=== PATIENT | male | born 1950 | race Caucasian/White ===

== ENCOUNTER 2020-09-25 09:43 | Emergency (ER) | payer MEDICARE, OTHER, SELFPAY ==
--- NOTE | 2020-09-25 09:43 | ECG_ITS ---
APPROVED REPORT Exam: Resting ECG HR:69 bpm ECG Measurements Heart Rate 69 AXES HI 134 P 56 QRSd 76 QRS 55 QT 390 T 39 QTc 417 Conclusion Normal sinus rhythm Delayed R wave transition. Abnormal ECG Electronically signed by : Jimbo Gooden MD 09/28/2020 11:41:48
[2020-09-25 09:48] VITALS: BP 140/85; PULSE 68; RESP 18; TEMP 36.6; O2SAT 96; BMI 25.1
--- NOTE | 2020-09-25 09:51 | XR_ITS ---
PROCEDURE: XR CHEST PORTABLE CLINICAL HISTORY: cp Chest pain COMPARISON: No exams were available for comparison FINDINGS: The cardiomediastinal silhouette and pulmonary vascularity are within normal limits. There are atelectatic changes in the lung bases. The remaining lungs are clear. No acute bony abnormalities. IMPRESSION: Bibasilar atelectasis Dictated by: Pietro De La Rosa MD 09/25/2020 10:34 Pietro De La Rosa MD in [place] 09/25/2020 10:34
--- NOTE | 2020-09-25 09:52 | HMH.EDGENADL ---
ED Disposition Clinical Impression: Chest pain Qualifiers: Chest pain type: unspecified Qualified Code(s): R07.9 - Chest pain, unspecified Disposition: Home, Self-Care Condition on Discharge: Good Referrals: Provider,Referral, [Referring] - 3 days Time of Disposition: 10:45 - Critical Care Critical Care Time: No Attestation: On , the high probability of a clinically significant, sudden or life threatening deterioration of the following system(s) required my full and direct attention, intervention and personal management. The time I documented below is in addition to time spent performing reported procedures but includes the following listed in this critical care notation. Medical Decision Making - Medical Records Medical records reviewed: Yes: I reviewed the patient's medical records. - Flaco Inquiry Pt receiving controlled substance: No Vital Signs: 09/25/20 09:48 09/25/20 10:10 Temperature 98 F Temperature Source Oral Pulse Rate 72 Pulse Rate [Right] 68 Respiratory Rate 18 12 Blood Pressure 135/90 Blood Pressure [Right Arm] 140/85 Blood Pressure Mean [Right Arm] 103 02 Sat by Pulse Oximetry 96 96 Oxygen Delivery Method Room Air Room Air - Lab Data Lab Results 09/25/20 09:59: WBC 5.1, RBC 4.65, Hgb 14.8, Hct 42.4, MCV 91.1, MCH 31.9 H, MCHC 35.0, RDW 13.5, Plt Count 171, MPV 8.0, Neut % (Auto) 56.5, Lymph % (Auto) 34.8, Hamlin % (Auto) 6.7, Eos % (Auto) 1.3, Baso % (Auto) 0.7, Neut # (Auto) 2.9, Lymph # (Auto) 1.8, Hamlin # (Auto) 0.3, Eos # (Auto) 0.1, Baso # (Auto) 0.0 09/25/20 09:59: Sodium 139, Potassium 3.7, Chloride 101, Carbon Dioxide 28, Anion Gap 13.7, BUN 19, Creatinine 1.00, Estimated Creat Clear 77, Estimated GFR 74, Est GFR ( Amer) 90, Glucose 103 H, Calcium 9.3, Troponin I < 0.01 Result diagrams: 09/25/20 09:59 09/25/20 09:59 Orders (Tests/Meds): ED MEDICATIONS Generic Name Dose Route Start Last Admin Trade Name Evelyne PRN Reason Stop Dose Admin Nitroglycerin 0.4 mg 09/25/20 09:50 Nitroglycerin 0.4mg Sl Tablet SL 09/26/20 09:51 [id number] PRN Chest Pain Discontinued Medications Generic Name Dose Route Start Last Admin Trade Name Evelyne PRN Reason Stop Dose Admin Aspirin 324 mg 09/25/20 09:50 09/25/20 10:00 Aspirin 81mg Chewable Tablet PO 09/25/20 09:51 324 mg ONCE ONE Administration ORDERS Category Date Time Status Troponin I Q3H Lab 09/25/20 13:00 Ordered Troponin I Q3H Lab 09/25/20 16:00 Ordered - ECG Data Tracing #1 I reviewed this ECG and interpreted as documented below: Normal sinus rhythm, 69 bpm, no ST elevation or depression, normal intervals, no ectopy. Exam limited somewhat by artifact in leads I, lead II, lead aVR and aVL. ECG initial impression date: 09/25/20 ECG initial impression time: 09:45 - LADAN Score for Non-Stemi Age of Patient: 60-69 years old Heart Rate: 50-69 bpm Systolic Blood Pressure: 140-159 mmHg Serum Creatinine: 0.80-1.19 mg/dl CHF Killip Class: I-No CHF Other Risk Factors: None Non-Stemi Risk Score: 92 Medical Decision Narrative: 70yo M evaluated for chest pain. Patient no acute distress on initial evaluation. Differential diagnosis includes was not limited to: ACS/IN, PE, pneumonia, aortic injury, anxiety, GERD, constipation, gallbladder disease, pneumothorax. EKG is unremarkable as reviewed above. Chest x-ray is pending. Routine cardiac laboratory studies have been collected. Patient treated with 324 aspirin. Patient's work-up is benign. His cardiac risk is low per the Ladna score. Patient's heart score is 2. He remains asymptomatic at this time. He has a PCP at [facility]. Patient is appropriate and stable for discharge home for further outpatient work-up. General Adult HPI - General Stated complaint: chest pains Time Seen by Provider: 09/25/20 09:53 Mode of Arrival: Ambulatory - History of Present Illness HPI narrative: 70yo M reports the emergenc
[2020-09-25 10:10] VITALS: BP 135/90; PULSE 72; RESP 12; O2SAT 96
[2020-09-25 10:10] LABS: Basophils % 0.7 % (0.1-2.0); Eosinophils # 0.1 K/mm3 (0.0-0.4); Eosinophils % 1.3 % (0.1-12.0); Hematocrit 42.4 % (42.0-52.0); Hemoglobin 14.8 g/dL (14.1-18.0); Lymphocytes # 1.8 K/mm3 (0.7-4.5); Lymphocytes % 34.8 % (10-50); Mean Corpuscular Hemoglobin 31.9 pg (27.0-31.2); Mean Corpuscular Volume 91.1 fl (80-94); Monocytes # 0.3 K/mm3 (0.1-1.0); Monocytes % 6.7 % (1.7-9.3); Neutrophils # 2.9 K/mm3 (1.8-7.8); Neutrophils % 56.5 % (37.0-80.0); Platelet Count 171 K/mm3 (142-424); Red Blood Count 4.65 M/mm3 (4.60-6.20); Red Cell Distribution Width 13.5 % (11.5-17.5); White Blood Count 5.1 K/mm3 (4.8-10.8)
[2020-09-25 10:22] LABS: Chloride 101 mmol/L (98-107); Sodium 139 mmol/L (136-145)
[2020-09-25 10:23] LABS: Potassium 3.7 mmoL/L (3.5-5.1)
[2020-09-25 10:25] LABS: Blood Urea Nitrogen 19 mg/dl (9-20); Creatinine Clearance Estimated 77 mL/min (50-200); Estimated Glomerular Filt Rate 74 ml/min (>60); GFR (African American) 90 ML/MIN (>60)
[2020-09-25 10:26] LABS: Anion Gap 13.7 mEq/L (5-15); Calcium 9.3 mg/dl (8.4-10.2); Carbon Dioxide 28 mmol/L (22.0-30.0); Glucose 103 mg/dl (74-100)
[2020-09-25 10:38] LABS: Troponin I < 0.01 ng/ml (0.00-0.034)
[2020-09-25 10:56] VITALS: BP 133/84; PULSE 70; RESP 16; TEMP 36.5; O2SAT 94
== END 2020-09-25 10:57 | disposition home or self-care (01) ==
PROVIDERS: Emergency Provider Family Medicine; PCP Internal Medicine
DX: R07.9 Chest pain, unspecified (principal)
CPT/HCPCS: 71045; 80048; 84484; 85025; 93005; 99284

== ENCOUNTER 2025-01-16 09:47 | Emergency (ER) | payer MEDICARE, SELFPAY ==
--- OUTSIDE RECORDS SUMMARY | 2024-12-12 14:00 | XMS_ITS | Encounter Summary ---
Author Name Yana Lazaro Address [address] [place] [address] Organization [facility] Address [address] [place] [address] Medications * escitalopram oxalate 20 mg tablet: * varenicline tartrate 0.5 mg tablet: * rosuvastatin calcium 20 mg tablet: * losartan potassium 50 mg tablet: * gabapentin 600 mg tablet: * levothyroxine sodium 137 mcg tablet: Allergies Assessment and Plan ASSESSMENT SUMMARY NIDA MELGAR is a 74 year old man seen today by [facility] for a [facility] Visit. DEVOTED: (Actions completed today and next steps): - enrolled in medication on time today- Educatedon importance of smoking cessation and taking statin daily due to coronary artery disease- Recommend flu vaccine- Follow-up expected: annual D2Me PATIENT'S NEXT STEPS: - continue to f/u with pcp and specialists as scheduled- to get flu vaccine- continue to enjoy hobbies: spending time with dog- goal over next 6-12 months is to increase physical activity weekly and consider grief counseling Patient Currently Located in their home state of [place], YES DIAGNOSIS SUMMARY* J43.9- Emphysema, unspecified * F17.210- Nicotine dependence, cigarettes, uncomplicated * 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 * E78.5- Hyperlipidemia, unspecified * E03.9- Hypothyroidism, unspecified VISIT PURPOSE, PATIENT'S GOALS, & AGENDA SETTING Annual Wellness Visit with PCP completed this year?: AWV already completed Today's Member Goals: patient doesn't have any current concerns, is feeling as well as can be expected MEDICATION RECONCILIATION Did you review the patient's prescription and non-prescription drugs, vitamins, herbal remedies, and other supplements, AND is the accompanying medication list documented in the medical record?: Yes MEDICATION ADHERENCE Home Delivery Order Consent: No Medication Class(es) <em>select all that apply</em> Is member interested in enrolling in Medication On Time Program today?: MEMBER INTERESTED Is member receiving VA medical benefits?: NO MEDICATION ON TIME CONSENT: Yes GENERAL ASSESSMENT* Feet: 5 Inches: 8 WEIGHT (pounds): 155 <hr>BODY MEASUREMENTS:* <em>Patient Height in centimeters</em>: 172.72* <em>Patient Weight in kilograms</em>: 70.31 * <em>Patient Body Mass Index</em>: 23.57 Supplemental oxygen status: Room Air Supplemental Oxygen Needs: Does not need supplemental oxygen In general, would you say your quality of life is: Good Do you exercise regularly?: No Physical activity level during a typical week: patient has not current regimen General Assessment Notes:patient does not have a bp monitor SUBSTANCE USE - Smoking History History of cigarette use: Yes Cigarette smoking status: Current Smoker Packs / day: 0.5 Duration (years): 30 DISCUSSED: Counseling on smoking cessation, pharmacotherapy, and spirometry testing was provided DISCUSSED: For men 65 - 75, counseled the patient on the importance of AAA screening due to elevated risk from smoking history Dx:F17.210- Nicotine dependence, cigarettes, uncomplicated Notes for F17.210: - Pt currentsmoker- PPD for 0.5 year for 30 years- Currently with diagnosis of emphysema- Recommend surveillance CT chest, CXR as indicated- Follow up with PCP SUBSTANCE USE - Alcohol Use The patient has never been a drinker: Yes SCREENING - Depression Previously diagnosed with major depressive disorder?: Yes Is the patient currently on antidepressant medication?: Yes PHQ-2 Assessment Little interest or pleasure in doing things?: Several days (+1) Feeling down, depressed, or hopeless?: Several days (+1) PHQ2 Score: 2 PHQ-9 Assessment Trouble falling or staying asleep, or sleeping too much?: Not at all (0) Feeling tired or having little energy?: Nearly every day (+3) Poor appetite or overeating?: Several days (+1) Feeling bad about yourself, or that you are a failure or have let yourself or your family down?: Not at all (0) Trouble concentrating on things, such as reading the newspaper or watching television?: Not at all (0) Moving or speaking so slowly that other people could have noticed? Or so fidgety or restless that you have been moving a lot more than usual?: Not at all (0) Thoughts that you would be better off , or thoughts of hurting yourself in some way?: Not at all (0) PHQ9 Score: 6 Had > 1 episode of major depression?: No Previously recorded diagnosis of bipolar disorder, schizoaffective disorder, or schizophrenia?: No / Unknown SCREENING - Fall Risk Have you fallen in the past year?: No Do you have problems getting around?: No SCREENING - DME & Home Health Does the patient use any durable medical equpiment?: No Does the patient use home health, physical therapy or long term services?: No New orders, referrals, or any other assistance with DME or home health needed at this time?: No GENERAL REVIEW OF SYSTEMS Review of systems negative unless otherwise indicated above: Yes PULMONARY - Chronic Lung Disease Previously diagnosed with Emphysema: Yes [COPD] FEV1/FVC ratio < 0.7 + signs/symptoms of COPD?: No Signs or symptoms of an acute exacerbation of COPD?: No Dx:J43.9- Emphysema, unspecified Notes for J43.9: - Pt with emphysema does not have current symptoms of SOB, FLORES, cough, wheezing, sputum production- Diagnostic tests: CT CHEST LOW DOSE SCREENING study was obtained by Red Fajardo MD on 05/15/2023. Excerpt from the report: 'There is mild emphysematous change'- Patient is not using an inhaler and has never had to use one- Educated that any worsening cough, SOB, and/or wheezing would require urgent follow-up- Follow up with PCP as scheduled * DISCUSSED: Counseling on benefits of abstaining from smoking. 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 Notes for I25.10: - Patient has atherosclerotic heart disease of nulato coronary artery without angina- Patient informed of imaging findings today, previously aware of finding.- Educated pt on atherosclerosis and recommendation of cardiovascular exercise in preventing progression of atherosclerosis- Patient is taking rosuvastatin for treatment and is compliant- Followed by PCP * ACTION: Confirm patient is on statin therapy, with goal LDL of 100 mg/dL, or has a contraindication RENAL - Chronic Kidney Disease Does patient carry a diagnosis of chronic kidney disease?: No Two basic metabolic panels by > 3 months showing an eGFR < 90?: No SKIN - Ulcers Does patient CURRENTLY have a skin ulcer?: No COMMON DIAGNOSES The patient has a diagnosis of hyperlipidemia: Yes The patient has a previously recorded diagnosis of hypothyroidism: Yes Statin status: Already on a statin regimen Dx:E78.5- Hyperlipidemia, unspecified Notes for E78.5: - Pt with hyperlipidemia- Taking rosuvastatin as prescribed- Most recent lipid panel and date: Chol:182 HDL:40 LDL:102 Tri on 09/08/24- Educated on importance of low saturated fat diet and physical activity- Followed by PCP * DISCUSSED: Educated patient on etiology and natural history of hyperlipidemia * DISCUSSED: Educated patient on lifestyle modifications such as diet and exercise to improve lipid levels * DISCUSSED: Educated patient on importance of medication adherence to improve lipid levels * ACTION: Confirmed that patient's lipid levels are being monitored by PCP The etiology of the patient's hypothyroidism is: Other Dx:E03.9- Hypothyroidism, unspecified Notes for E03.9: - Patient has hypothyroidism- Currently taking [levothyroxine] and compliant with current regimen- Educated on taking first thing in the morning with a full glass of water on an empty stomach without other medications- Managed by PCP, will follow up as scheduled ADDITIONAL MEDICAL HISTORY Condition: Cirrhosis of Liver Condition Stability: Stable Medication Adherence: Not prescribed medication Additional Notes-: 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 Stable currently without any symptoms Condition: Depression Condition Stability: Other Medication Adherence: Taking medication as prescribed Medication Regimen Recommendations: No changes recommended Additional Notes-: lexapro dose recently increased, patient advised to stay as diligent as possiblein eating healthy and getting nutrients daily. Encouraged going on walks and does have access to grief counseling Condition: Hypertension Condition Stability: Stable Medication Adherence: Taking medication as prescribed Medication Regimen Recommendations: No changes recommended Additional Notes-: most recent blood pressure stable 136/78, followed closely by pcp 2024 APPOINTMENT CPT CODE Please indicate how this visit was conducted: Video Please select the video platform used during the visit: [employer] Video Room Please record the total amount of time you spent on this patient visit- Total time includes time spent on preparation, speaking with the patient, documentation, and post-visit coordination of care - This is limited to time spent ON THE DATE OF SERVICE (e.g. does not include time spent on days prior to or after the date of service) 45 - 59 minutes
[2025-01-16] VITALS (7 sets, daily range): BP systolic 143–165; BP diastolic 73–96; PULSE 61–81; RESP 18; TEMP 36.6; O2SAT 95–96; BMI 24.3
--- OUTSIDE RECORDS SUMMARY | 2025-01-16 10:02 | XMS_ITS | Clinical Summary ---
Author Organization [facility] Address [address] [place] [address] Phone Care Team Providers Care Roper Operator Name Role Phone Unavailable Unavailable Conditions or Problems No information available. Medications No information available. Medications Administered No information available. Allergies, Adverse Reactions, Alerts No information available. Results No information available. Plan of Care No information available. Procedures No information available. Vital Signs No information available. Immunizations No information available. Advance Directives No information available.
--- NOTE | 2025-01-16 10:11 | XR_ITS ---
FINAL REPORT CLINICAL HISTORY: FOOSH/elbow injury FINDINGS: AP and lateral views of the left forearm are obtained. There is no prior exam for comparison. There is no acute osseous abnormality of the left forearm. The wrist and elbow are intact. The soft tissues appear normal. IMPRESSION: No acute osseous abnormality of the left forearm. Reviewed, Interpreted and Dictated by Marylin Duran MD Transcribed by Tracie Cunningham Authenticated and [facility]
--- NOTE | 2025-01-16 10:13 | XR_ITS ---
FINAL REPORT CLINICAL HISTORY: FOOSH injury/elbow injury FINDINGS: Four views of the elbow were obtained. There is no acute fracture or dislocation. There is mild multijoint degenerative disease. There is not soft tissue abnormality. IMPRESSION: No acute fracture Reviewed, Interpreted and Dictated by Marylin Duran MD Transcribed by Tracie Cunningham Authenticated and [facility]
--- NOTE | 2025-01-16 10:13 | XR_ITS ---
FINAL REPORT CLINICAL HISTORY: FOOSH/left arm injury FINDINGS: AP, oblique, and lateral views of the left wrist were obtained. There is no prior exam for comparison. There is no acute fracture or dislocation. There is mild multijoint degenerative disease. The soft tissues are normal. IMPRESSION: No acute osseous abnormality of the left wrist. Reviewed, Interpreted and Dictated by Marylin Duran MD Transcribed by Tracie Cunningham Authenticated and [facility]
--- NOTE | 2025-01-16 10:14 | ED_ITS ---
<Statement entered by Isabel Rodríguez MD - 01/16/25 13:43> I was consulted by the SARAH, and we discussed the complexity of the problems being addressed. I approved the treatment and management plan for this patient's care in the emergency department, thus performing a substantive portion of the medical decision making. Isabel Rodríguez MD, RAHEEM, FACEP Discharge Plan Disposition Patient Disposition: Home, Self-Care Condition: Good Prescriptions Prescriptions: New hydrocodone-acetaminophen 5-325 mg tablet 1 tab PO Q6H PRN (Reason: pain) 3 Days Qty: 12 0RF Referrals Follow up/Referrals: Provider,Referral, [Referring, Medical] - See instructions Satya Clifton DO [Staff Physician, Orthopedics] - See instructions Activity Restrictions/Add. Instructions Additional Instructions/Restrictions: Please return to the emergency department any worsening signs or symptoms. Please take your pain medicines as prescribed. Please follow-up with the orthopedic doctor in the upcoming days/weeks. Please keep your arm in the sling and splint until orthopedic follow-up. Clinical Impressions Clinical Impression: Left ulnar fracture Instructions Patient Instructions: DI for Elbow Fracture Print Language Print Language: Khmer Discharge ED Provider: Isabel Rodríguez General Adult HPI General Chief complaint: Fall Stated complaint: AO-01/15/25, Pain L elbow and wrist Time Seen by Provider: 01/16/25 10:05 Mode of Arrival: Ambulatory Source of Information: Patient Description of Symptoms (Recalled from ER Triage Doc. by RN): pt fell @ 2100 last night. complains of left arm pain from the elbow down. denies being on a blood thinner or hitting his head/LOC from the fall. History of Present Illness HPI narrative: 74-year-old male presents the emergency department with a left elbow/left arm FOOSH injury that occurred last night. Patient states that last night he was walking on his property when he slipped down a embankment , patient denies any presyncopal or syncopal event, denies striking head denies any LOC, denies any other upper or lower extremity injury except for the left arm, patient does move extremities to command but does have some pain limited range of motion, denies any neck pain or back pain, denies any radicular type symptomatology, patient denies any fever chills chest pain shortness of breath no numbness or tingling no other acute symptomatology, patient is a current everyday smoker denies any alcohol or drug use, other past medical history is consistent with hypothyroidism, neuropathy, hyperlipidemia. Initial triage vitals are unremarkable. Of note, patient not yet taken any medication for this tressa n/injury. Please note that above description of symptoms, in this electronic medical record under categorization of recalled from ER triage doctor by RN are reflective of an initial nursing assessment, however, is not reflective of my full history and physical exam that was personally taken and clarified. Consequentially, this preceding description of symptoms, which may include the patient's categorized chief complaint in the EMR, do not reflect my personal clinical impression, and the ultimate description of history of present illness and patient stated complaints should be deferred to this section of the note. Unless stated otherwise or congruent with this section of the note, additional signs, symptoms, or incongruence should be interpreted as inaccurate with my clinical impression. Onset (ago): hour(s) Related Data Previous Rx's ?Medication ?Instructions ?Recorded hydrocodone 5 mg-acetaminophen 325 1 tab PO Q6H PRN pa in 3 days #12 01/16/25 mg tablet tabs Allergies Allergy/AdvReac Type Severity Reaction Status Date / Time No Known Allergies Allergy Verified 09/25/20 09:57 [facility] Disclaimer: The information contained in this section may have been updated after the patient was seen, as this information can be updated by other users. Social History Smoking Status: Current every day smoker alcohol intake: never current occupational status: other Travel in the last 8 weeks?: None Other Medical History Have you received the Flu Vaccine for this season: No Have you received the Pneumonia Vaccine: No ROS Obtained: Yes All systems reviewed & no additional complaints except as documented Physical Exam General General appearance: alert and in no apparent distress Head Head exam: atraumatic and normocephalic Eye Eye exam: Present PERRL and EOMI ENT ENT exam: Present mucous membranes moist Neck Neck exam: Present normal inspection Chest Chest inspection: Present normal inspection and symmetric chest wall rise Respiratory Respiratory exam: Present normal lung sounds bilaterally; Absent respiratory distress Cardiovascular Cardiovascular exam: Present regular rate and normal rhythm Abdominal Exam Abdominal exam: Present soft; Absent tenderness Extremities Exam Extremities exam: Present tenderness, joint swelling and other (Some obvious soft tissue swelling over the posterior olecranon region, no obvious acute dislocation or open fracture, pain palpation over the anterior/posterior aspect of the elbow, patient has difficulty with flexion and extension, good finger opposition and good b operator strength, otherwise neurovascu); Absent normal inspection or full ROM Neurological Exam Neurological exam: Present alert and oriented X3 Psychiatric Psychiatric exam: Present normal affect Skin Skin exam: Present warm and dry Medical Decision Making Medical Records Medical records reviewed: Yes I reviewed the patient's medical records. Screening: Per USPSTF and CDC recommendations, given the prevalence of disease in our region, it is our hospital?s policy to screen for HIV and viral Hepatitis for all patients aged 18 and over and those with ongoing risk factors. Flaco Inquiry Pt receiving controlled substance: No Flaco was queried for this patient: No Vital Signs: 01/16/25 09:54 01/16/25 09:55 01/16/25 10:00 Temperature 97.9 F Temperature Source Oral Pulse Rate 76 68 Pulse Rate [Right] 74 Respiratory Rate 18 Blood Pressure 165/96 H 143/89 H Blood Pressure [Right Arm] 165/96 H Blood Pressure Mean [Right Arm] 119 02 Sat by Pulse Oximetry 95 95 96 Oxygen Delivery Method Room Air 01/16/25 11:01 01/16/25 11:15 01/16/25 11:30 Temperature Temperature Source Pulse Rate 62 64 61 Pulse Rate [Right] Respiratory Rate Blood Pressure 153/89 H 156/83 H 157/88 H Blood Pressure [Right Arm] Blood Pressure Mean [Right Arm] 02 Sat by Pulse Oximetry 96 95 95 Oxygen Delivery Method Room Air Room Air Room Air Orders (Tests/Meds): ED MEDICATIONS Discontinued Medications Generic Name Dose Route Start Last Admin Trade Name Freq PRN Reason Stop Dose Admin Acetaminophen 1,000 mg 01/16/25 10:14 01/16/25 10:17 Acetaminophen 500mg Tab PO 01/16/25 10:15 1,000 mg ONCE ONE Administration ORDERS Category Date Time Status CT forearm LT wo con Stat Cat Scan 01/16/25 10:39 Taken XR elbow LT min 3V Stat Exams 01/16/25 10:13 Completed XR forearm LT 2V Stat Exams 01/16/25 10:11 Completed XR wrist LT min 3V Stat Exams 01/16/25 10:13 Completed Medical Decision Narrative: 74-year-old male presents emergency department with a FOOSH injury of his left arm,/elbow, differential diagnose include but not limited to, strain/sprain, radial fracture, ulnar fracture, olecranon fracture, hematoma, wrist sprain/strain, wrist fracture among others. I discussed this patient's case with attending physician Dr. Rodríguez Will obtain x-rays of the patient's left wrist, left forearm and left elbow for further evaluation/characterization, will give 1000 mg of Tylenol for the patient's pain. After reviewing the plain film x-rays, there is concern for cortical disruption about the patient elbow joint, will obtain CT of the left elbow without contrast for further evaluation/characterization. I reviewed the patient's elbow x-ray wrist x-ray inform her x-ray on the left along the corresponding radiologic reports, no acute fracture, no acute osseous abnormality left wrist, and no acute osseous abnormality left forearm. I discussed this patient's case with the on-call orthopedic surgeon Dr. Clifton at approximately 11:45 AM, he saw and reviewed the patient's plain films as well as CT imaging, he recommends follow-up in the orthopedic clinic with posterior splint in the upcoming days. I along with the assistance of nursing staff placed a posterior long-arm splint on the patient, patient tolerated procedure well, neuro intact preprocedure and post procedure, patient is also placed in sling for comfort. Will prescribe the patient 5 mg p.o. [place] for analgesia per attending physician. Patient would not like to wait on his CT read of his left elbow would like to be discharged home to self-care I think this is appropriate as we are discussed the patient's case as well as imaging study with orthopedic physician, patient is splinted and in sling, will follow-up with orthopedic physician in the upcoming days/weeks. Will call patient with any results of his CT that may be actionable. Patient was given strict ED return precautions. Patient voiced understanding and agreement with the current treatment plan/discharge plan. Procedures Orthopedic Splinting/Casting Injury #1: Side: left Upper Extremity Injury Location: elbow Upper Extremity Immobilizer: posterior splint and sling Post Cast/Splinting Neuro Status: intact and no change Post Cast/Splinting Vasc Status: intact and no change Critical Care Critical Care Time Critical Care Time: No
[2025-01-16] MEDS: ACETAMINOPHEN 500MG TAB 1000 MG PO (10:17)
--- NOTE | 2025-01-16 10:39 | CT_ITS ---
FINAL REPORT TECHNIQUE: Thin section axial images were obtained through the left elbow without contrast. Reconstruction images were obtained from the axial data. Exam was performed using dose reduction technique. CLINICAL HISTORY: FOOSH/elbow injury COMPARISON: None FINDINGS: There is a comminuted fracture of the proximal ulna involving the coronoid process and extending to the medial aspect of the elbow joint. No other fracture is visualized of the elbow. There is degenerative joint disease. Remainder of the radius and ulna are intact without fracture. Soft tissues show a joint effusion of the elbow. There is prominent soft tissue edema of the proximal forearm, worse posteriorly. There may be an intramuscular hematoma of the common flexor muscles at the proximal forearm. IMPRESSION: Comminuted intra-articular proximal ulnar fracture involving the coronoid process. Joint effusion, soft tissue edema, and possible hematoma as above. Reviewed, Interpreted and Dictated by Marylin Duran MD Transcribed by Eri Alonso Authenticated and [facility]
--- NOTE | 2025-01-16 13:18 | PC.NURSE ---
called RAD about pt forearm CT. stated it was sent back and that they had to resend it so it would take awhile longer
== END 2025-01-16 13:37 | disposition home or self-care (01) ==
PROVIDERS: Emergency Provider Student in an Organized Health Care Education/Training Program; PCP Internal Medicine
DX: S52.202A Unspecified fracture of shaft of left ulna, initial encounter for closed fracture (principal); F17.210 Nicotine dependence, cigarettes, uncomplicated; W01.10XA Fall on same level from slipping, tripping and stumbling with subsequent striking against unspecified object, initial encounter
CPT/HCPCS: 29105; 73080; 73090; 73110; 73200; 99284